=== PATIENT | female | born 1940 | race Caucasian/White ===

== ENCOUNTER 2024-12-21 11:22 | Day surgery (SDC) | payer MEDICARE ==
[2024-12-21] MEDS ORDERED: Sodium Chloride 0.9(Preservative Free) 10 ML IJ ONE (11:23)
[2024-12-21] MEDS ORDERED: LIDOCAINE HCL 1% 50 MG/5 ML VL IJ ONE (11:23)
[2024-12-21] MEDS ORDERED: methylPREDNISolone acetate IM ONE (11:23)
[2024-12-21] MEDS ORDERED: propofoL IV ONE (12:48)
[2024-12-21] MEDS ORDERED: Lactated Ringers 1,000 ML IV ONE (13:32)
--- NOTE | 2024-12-21 13:32 | XRAY ---
Indication: Lumbar KUMAR. Intraoperative fluoroscopy provided for 20 seconds. 3 digital spot image submitted for interpretation demonstrates posterior needle tip projecting posterior to lumbosacral junction. Small amount of contrast injected for needle tip placement. Correlate with intraoperative findings/report.
--- NOTE | 2024-12-21 13:34 | XRAY ---
20 seconds of fluoroscopy was used in surgery for a lumbar KUMAR.
== END 2024-12-21 13:26 | disposition home or self-care (01) ==
LOC: SDC-PAIN 11:22
PROVIDERS: ATTEND Psychiatry & Neurology Pain Medicine
DX: M54.16 Radiculopathy, lumbar region (principal)